=== PATIENT | male | born 1955 | race Two or more races ===

== ENCOUNTER 2024-06-03 00:29 | Emergency (ER) | payer MEDICAID, SELFPAY ==
[2024-06-03 01:05] VITALS: BP 144/78; PULSE 76; RESP 16; TEMP 37.1; O2SAT 97
[2024-06-03 01:06] LABS: Collection Type, Urine Clean Catch
[2024-06-03 01:13] LABS: Bilirubin,Urine Negative (Negative); Blood,Urine Negative (Negative); Clarity,Urine Clear (Clear/Hazy); Color,Urine Lt-Yellow (Lt Yel-Yel); Culture Indicated,Urine Not Indicated; Glucose, Urine Negative (Negative); Ketones,Urine Negative (Negative); Leukocyte Esterase,Urine Positive (Negative); Nitrite,Urine Negative (Negative); Protein,Urine Negative (Neg - Trace); RBC,Urine 2 /hpf (0-3); Squamous Epithelial Cell,Urine < 1 /hpf (0-5); Urobilinogen,Urine Negative mg/dL (0.0-1.0); WBC,Urine 9 /hpf (0-5)
[2024-06-03] MEDS: NAPROXEN 250 MG TABLET 500 MG PO (01:17)
--- NOTE | 2024-06-03 01:31 | PD.EDMALE ---
ED Male Genitalurinary RME/HPI General Chief complaint: Urogenital-Male Stated complaint: PAIN IN URINATION Time Seen by Provider: 06/03/24 01:12 Arrival date/time: 06/03/24 00:29 69M with history of HTN presents to ED with 1 month of intermittent dysuria after patient got a urethral dilation procedure by the urologist. Patient was supposed to have his follow-up today, but the appt was cancelled. Limitations: no limitations Related Data Home Medications ?Medication ?Instructions ?Recorded ?Confirmed omeprazole 20 mg capsule,delayed 20 mg PO QDAY 04/04/22 05/29/22 release finasteride 5 mg tablet 5 mg PO QDAY 05/29/22 05/29/22 tamsulosin 0.4 mg capsule 0.8 mg PO QDAY 05/29/22 05/29/22 Previous Rx's ?Medication ?Instructions ?Recorded amoxicillin 500 mg-potassium 1 tab PO BID #14 tabs 09/26/22 clavulanate 125 mg tablet (Augmentin) ondansetron 4 mg disintegrating 4 mg PO Q8H PRN nausea and 12/22/22 tablet vomiting #20 tabs acetaminophen 500 mg tablet 500 mg PO Q6H PRN pain #60 tabs 03/23/23 (Tylenol Extra Strength) meloxicam 7.5 mg tablet 7.5 mg PO QDAY #10 tabs 04/22/23 ondansetron 4 mg disintegrating 4 mg PO Q8H #14 tabs 04/22/23 tablet diclofenac sodium 1 % topical gel 4 g topical QID #100 grams 06/28/23 (Voltaren Arthritis Pain) naproxen 250 mg tablet 250 mg PO BID PRN pain #20 tabs 06/28/23 acetaminophen 500 mg tablet 500 mg PO Q6H PRN pain #30 tabs 04/09/24 Allergies Allergy/AdvReac Type Severity Reaction Status Date / Time No Known Allergies Allergy Verified 06/03/24 00:32 Review of Systems Review of Systems Systems Reviewed: All systems reviewed, normal except as documented Constitutional Constitutional: Reports system reviewed and no additional complaints, except as documented, Denies fever(s) and Denies headache(s) ENT Ears, Nose, Mouth, and Throat: Denies disequilibrium and Denies headache(s) Cardiovascular Cardiovascular: Reports system reviewed and no additional complaints, except as documented, Denies chest pain and Denies dyspnea Respiratory Respiratory: Reports system reviewed and no additional complaints, except as documented, Denies cough and Denies dyspnea Gastrointestinal Gastrointestinal: Reports system reviewed and no additional complaints, except as documented, Denies abdominal pain, Denies nausea and Denies vomiting Genitourinary Genitourinary: Reports as per HPI and Reports dysuria Neurologic Neurologic: Reports system reviewed and no additional complaints, except as documented, Denies confusion, Denies disequilibrium and Denies headache(s) Psychiatric Psychiatric: Denies confusion Past Medical History Past Medical History NEUROLOGIC: Negative Neurological Disorders CARDIAC: Positive Cardiac Disorders, Hypercholesterolemia and Hypertension; Negative Congestive Heart Failure RESPIRATORY: Negative Chronic Obstructive Pulmonary Disease (COPD) or Asthma GASTROINTESTINAL: Negative Gastrointestinal Disorders or Hepatitis GENITOURINARY: Positive Genitourinary Disorders and Benign Prostatic Hyperplasia; Negative Renal Disease MUSCULOSKELETAL: Negative Musculoskeletal Disorders ENDOCRINE: Negative Endocrine Disorders, Diabetes Mellitus Type 1 or Diabetes Mellitus Type 2 HEMATOLOGIC: Negative Blood Disorders or Sickle Cell Disease PSYCHO/SOCIAL: Positive Anxiety OTHER HISTORY: Positive Hospitalization; Negative Autoimmune Disease, Down Syndrome, Developmental Delay, Shingles, Falls, Anesthesia Reactions, Organ Transplant, MRSA, VRSA, Vancomycin-Resistant Enterococci, Clostridium Difficile or Cancer Family History FAMILY HISTORY: Positive Family Cardiac Disorders; Negative Family Respiratory Disorders or Family Gastrointestinal Problems Surgical History SURGICAL: Negative Cardiac Surgery, Endocrine Surgery, Thyroidectomy, Ear Surgery, Abdominal Surgery, Nephrectomy, Transurethral Resection, Joint Replacement, Neurologic Surgery, Vasectomy or Organ Transplant Social History SMOKING STATUS: Never smoker SUBSTANCE USE: does not use 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 ED Exam General Limitations: Present no limitations General appearance: Present alert and in no apparent distress Head Head exam: Present atraumatic Eye Eye exam: Present normal appearance, PERRL and EOMI ENT ENT exam: Present normal exam, normal oropharynx and mucous membranes moist Neck Neck exam: Present normal inspection, full ROM and trachea midline Chest Chest inspection: Present normal inspection and symmetric chest wall rise Respiratory Respiratory exam: Present normal lung sounds bilaterally Cardiovascular Cardiovascular exam: Present regular rate, normal rhythm and normal heart sounds Abdominal Exam Abdominal exam: Present soft and normal bowel sounds Extremities Exam Extremities exam: Present normal inspection and full ROM Back Exam Back exam: Present normal inspection and full ROM Neurological Exam Neurological exam: Present alert, oriented X3 and CN II-XII intact Psychiatric Psychiatric exam: Present normal affect and normal mood Skin Skin exam: Present warm, dry, intact and normal color Course Quality Measures none Orders Category Date Time Status Urinalysis, C/S if Indicated Stat Lab 06/03/24 01:00 Completed Naproxen [Naprosyn] Med 06/03/24 01:12 Discontinued 500 mg PO X1 ONE Vital Signs Vital signs: Vital Signs Temperature 98.8 F 06/03/24 01:05 Pulse Rate 76 06/03/24 01:05 Respiratory Rate 16 06/03/24 01:05 Blood Pressure 144/78 H 06/03/24 01:05 Pulse Oximetry (%) 97 06/03/24 01:05 Oxygen Delivery Method Room Air 06/03/24 01:05 O2 at 97% on RA and WNLs Urogenital - Male MDM Narrative MDM Narrative:: 69M with history of HTN presents to ED with 1 month of intermittent dysuria after patient got a urethral dilation procedure by the urologist. Patient was supposed to have his follow-up today, but the appt was cancelled. Physical exam reveals no ab/pelvic/flank tenderness. Patient is afebrile, calm, and alert. UA clean. Quality Compliance Coordinator given. Patient data External records reviewed:: [facility] previous records Clinical information provided by:: patient Social determinants that could affect healthcare access:: none Patient has the following chronic illnesses:: HTN How is presenting disease/condition affected by chronic disease/condition?: exacerbated by Evaluation data The following diagnostics were reviewed and interpreted by me:: lab results Lab and/or radiology exams considered but not ordered:: ordered Interpretation Summary: above Medications / Prescriptions Medications or Prescriptions considered but not ordered:: ordered Medication administrations:: Medication Administration History Discontinued Medications Naproxen (Naproxen 250 Mg Tablet) 500 mg PO X1 ONE Stop: 06/03/24 01:13 Last Admin: 06/03/24 01:17 Dose: 500 mg Documented By: OA above Consultations Consultation(s) initiated? (list below): No Diagnosis Urogenital Male Differential Diagnosis: urinary tract infection, priapism, urethritis, epididymitis, genital herpes simplex, prostatitis, acute retention of urine, inguinal hernia and other (dysuria) Most likely diagnosis given after review of the tests above:: dysuria Admission Indicated Admission indicated?: not indicated Admission Request Was there a request for admission?: No Disposition Plan Disposition Plan: Discharge Discharge Attestation Discharge Attestation: The patient and all family members were given an opportunity to ask questions and understood the discharge instructions. Discharge instructions specifically effects, indications for sooner follow up or return to the emergency department, and the expected course of current diagnosis. Patient condition: Stable Discharge Plan Plan Patient Disposition: HOME (Self Care) Disposition Comment: Stable Prescriptions/Referrals Prescriptions/Med Rec: No Action ondansetron 4 mg tablet,disintegrating 4 mg PO Q8H Qty: 14 0RF meloxicam 7.5 mg tablet 7.5 mg PO QDAY Qty: 10 0RF diclofenac sodium [Voltaren Arthritis Pain] 1 % gel 4 g topical QID Qty: 100 0RF Rx Instructions: apply to single knee, ankle, foot; for foot includes sole/toes/top of foot naproxen 250 mg tablet 250 mg PO BID PRN (Reason: pain) Qty: 20 0RF omeprazole 20 mg capsule,delayed release(DR/EC) 20 mg PO QDAY tamsulosin 0.4 mg capsule 0.8 mg PO QDAY Patient Comments: TAKE 2 CAPSULES BY MOUTH ONCE DAILY finasteride 5 mg tablet 5 mg PO QDAY Patient Comments: TAKE 1 TABLET BY MOUTH ONCE DAILY amoxicillin-pot clavulanate [Augmentin] 500-125 mg tablet 1 tab PO BID Qty: 14 0RF ondansetron 4 mg tablet,disintegrating 4 mg PO Q8H PRN (Reason: nausea and vomiting) Qty: 20 0RF acetaminophen [Tylenol Extra Strength] 500 mg tablet 500 mg PO Q6H PRN (Reason: pain) Qty: 60 0RF acetaminophen 500 mg tablet 500 mg PO Q6H PRN (Reason: pain) Qty: 30 0RF Problem List Clinical Impression: Dysuria Patient/Caregiver Discharge Instructions Education Materials: ED Dysuria, Uncertain Cause (Adult) Additional Instructions: Please follow-up with PCP within 24-48 hours and return immediately if symptoms worsen. Follow-up with urologist. Print Language: Bangladeshi Stand Alone Forms: Patient Portal Info Letter YADY/CHELSEY Supervising Physician YADY/CHELSEY Supervising Physician: Dr. Figueroa
== END 2024-06-03 01:22 | disposition home or self-care (01) ==
LOC: SERX 01:51
PROVIDERS: Physician Assistant; Emergency Provider Emergency Medicine
DX: R30.0 Dysuria (principal)
CPT/HCPCS: 81001; 99283; A9270